=== PATIENT | female | born 1995 | race Two or more races ===

== ENCOUNTER 2017-03-13 11:20 | Observation (INO) | payer SELFPAY ==
[~2017-03-13] VITALS: Ht 165.1 cm; Wt 90.7 kg
[2017-03-13 12:31] LABS: Basophils # (auto) 0 uL; Basophils % (auto) 0.3 % (0.0-2.0); CONDITION Y; Eosinophils # (auto) 0.4 uL; Eosinophils % (auto) 4.1 % (0.0-7.0); Hematocrit 38.3 % (36.0-46.0); Hemoglobin 13.1 g/dL (12.2-16.2); Lymphocytes # (auto) 1.9 uL; Lymphocytes % (auto) 20.4 % (10.0-50.0); Mean Corpuscular Hemoglobin 29.7 pg (28.0-32.0); Mean Corpuscular Hgb Conc. 34.2 g/dL (32.0-36.0); Mean Corpuscular Volume 86.7 fL (80.0-100.0); Mean Platelet Volume 9.8 fL (7.4-10.4); Monocytes # (auto) 0.9 uL; Monocytes % (auto) 9.5 % (0.0-12.0); Neutrophils # (auto) 6.1 uL; Neutrophils % (auto) 65.7 % (37.0-80.0); Platelet Count (auto) 273 10^3/uL (140-450); Red Cell Distribution Width 14.2 % (11.6-16.0); White Blood Cell 9.2 10^3/uL (4.4-10.8)
[2017-03-13 12:36] LABS: BUN/Creatinine Ratio 18.5; Calcium 9.6 mg/dL (8.5-10.1); Potassium 4.1 mmol/L (3.5-5.1)
[2017-03-13 12:39] LABS: Bilirubin, Total 0.2 mg/dL (0.2-1.0); Total Protein 6.8 g/dL (6.4-8.2)
[2017-03-13] MEDS ORDERED: TERBUTALINE SULFATE 1 MG/ML 1ML VIAL SC ONE (12:45)
[2017-03-13] MEDS ORDERED: LACTATED RINGER'S 1,000 ML IV ONE (13:45)
[2017-03-14 15:52] LABS: Uric Acid 4.8 mg/dL (2.6-6.0)
== END 2017-03-13 15:25 | disposition home or self-care (01) | DRG 781 ==
LOC: LDRP 11:20
PROVIDERS: ADMIT Specialist; ATTEND Specialist
DX: O26.893 Other specified pregnancy related conditions, third trimester (principal); R10.2 Pelvic and perineal pain; O60.03 Preterm labor without delivery, third trimester; O62.9 Abnormality of forces of labor, unspecified; Z3A.34 34 weeks gestation of pregnancy
CPT/HCPCS: 36415; 59025; 76805; 76818; 80053; 81002; 84550; 85025; 86592; 96372; G0378; J3105; 96375

== ENCOUNTER 2017-03-16 10:46 | Observation (INO) | payer SELFPAY | END 2017-03-16 13:15 | disposition home or self-care (01) | DRG 781 | LOC: LDRP 10:46 | PROVIDERS: ADMIT Obstetrics & Gynecology; ATTEND Obstetrics & Gynecology | DX: O26.613 Liver and biliary tract disorders in pregnancy, third trimester (principal); O60.03 Preterm labor without delivery, third trimester; O62.9 Abnormality of forces of labor, unspecified; Z3A.35 35 weeks gestation of pregnancy | CPT/HCPCS: 59025; 76805; 81002; G0378 ==

== ENCOUNTER 2017-03-31 05:06 | Inpatient (IN) | payer MEDICAID ==
[~2017-03-31] VITALS: Ht 30.5 cm; Wt 0.5 kg
[~2017-03-31 05:06] MED LIST: PREN-153 OR
[2017-03-31] MEDS: LACTATED RINGER'S 1,000 ML IV SCH ×4 (06:00→13:00)
[2017-03-31] MEDS ORDERED: PROMETHAZINE HCL 25 MG/ML 1ML IV PRN (06:00)
[2017-03-31] MEDS ORDERED: NALBUPHINE HCL 10 MG/1ml INJECTION IV PRN (06:00)
[2017-03-31] MEDS ORDERED: LIDOCAINE 1% HCL (LOCAL ANESTH.) INJ 20ML MDV XX ONE (06:00)
[2017-03-31] MEDS ORDERED: PENICILLIN G POT 5MIL/D5 50ML 50 ML IV ONE ×2 (06:12→06:15)
[2017-03-31 06:56] LABS: Basophils # (auto) 0 uL; Basophils % (auto) 0.3 % (0.0-2.0); CONDITION Y; Eosinophils # (auto) 0.3 uL; Eosinophils % (auto) 3.9 % (0.0-7.0); Hematocrit 37.1 % (36.0-46.0); Hemoglobin 12.7 g/dL (12.2-16.2); Lymphocytes # (auto) 2.1 uL; Mean Corpuscular Hemoglobin 29.6 pg (28.0-32.0); Mean Corpuscular Hgb Conc. 34.2 g/dL (32.0-36.0); Mean Corpuscular Volume 86.8 fL (80.0-100.0); Monocytes # (auto) 0.8 uL; Monocytes % (auto) 9.5 % (0.0-12.0); Neutrophils # (auto) 4.9 uL; Neutrophils % (auto) 60.3 % (37.0-80.0); Platelet Count (auto) 255 10^3/uL (140-450); Red Cell Distribution Width 14.6 % (11.6-16.0); White Blood Cell 8.1 10^3/uL (4.4-10.8)
[2017-03-31 07:05] LABS: INR 0.89 (0.9-1.15); Partial Thromboplastin Time 29.6 sec (22.64-33.71); Prothrombin Time 9.7 sec (9.37-12.3)
[2017-03-31 07:24] LABS: Albumin 2.5 g/dL (3.4-5.0); BUN/Creatinine Ratio 18.9; Bilirubin, Total 0.2 mg/dL (0.2-1.0); Potassium 4.2 mmol/L (3.5-5.1); Total Protein 6.3 g/dL (6.4-8.2); Uric Acid 6.2 mg/dL (2.6-6.0)
[2017-03-31] MEDS ORDERED: LACT. RINGERS/OXYTOCIN 20UNITS 1,000 ML IV ONE ×2 (07:24→16:59)
[2017-03-31] MEDS ORDERED: TERBUTALINE SULFATE 1 MG/ML 1ML VIAL SC ONE (07:30)
[2017-03-31 07:46] LABS: Urine Bilirubin Negative (Negative); Urine Color Yellow (Yellow); Urine Glucose Normal (Normal); Urine Hyaline Cast FEW /lpf (0 - 2); Urine Ketone Negative (Negative); Urine Nitrite Negative (Negative); Urine Urobilinogen Normal (Negative); Urine pH 7.5 (5.0-8.0)
[2017-03-31 07:48] LABS: Urine Blood 2+ /uL (Negative); Urine RBC 69 /hpf (0 - 4)
[2017-03-31 07:49] LABS: Urine Squamous Epithelial Cell Moderate /hpf (<5)
[2017-03-31] MEDS ORDERED: LIDOCAINE HCL 2 %PF INJ 10ML AMP IJ ONE ×2 (10:15→10:18)
[2017-03-31] MEDS ORDERED: fentaNYL CITRATE 100 MCG/2 ML VL IV ONE (10:15)
[2017-03-31] MEDS ORDERED: ePHEDrine SULFATE 50 MG/ML AMP IV ONE (10:15)
[2017-03-31] MEDS ORDERED: fentaNYL W ROPIVACAINE 150 ML EPI SCH (10:15)
[2017-03-31] MEDS ORDERED: NALOXONE HCL 0.4 MG/ML VIAL IV ONE (10:15)
[2017-03-31] MEDS ORDERED: fentaNYL W ROPIVACAINE 0 ML EPI ONE (10:16)
[2017-03-31] MEDS ORDERED: fentaNYL CITRATE 100 MCG/2 ML VL ONE (10:17)
[2017-03-31] MEDS ORDERED: ePHEDrine SULFATE 50 MG/ML AMP ONE (10:17)
[2017-03-31] MEDS ORDERED: MAGNESIUM SULFATE 40MG/ML 1,000 ML IV ONE (11:04)
[2017-03-31] MEDS: PENICILLIN G POTASSIUM 2,500,000 UNITS in D5W 5% 50 ML IV SCH ×3 (11:15→20:00)
[2017-03-31] MEDS: MAGNESIUM SULFATE 40MG/ML 1,000 ML IV SCH (11:20)
[2017-03-31] MEDS ORDERED: LIDOCAINE 2%HCL (LOCAL ANESTH.) INJ 20ML MDV ONE (14:28)
[2017-03-31] MEDS ORDERED: PHISODERM TOP SOLN 240ML BTL TOP ONE (14:29)
[2017-03-31] MEDS ORDERED: DERMOPLAST 60ML BOTTLE TOP ONE (14:29)
[2017-03-31] MEDS ORDERED: WITCH HAZEL-GLYCERIN PAD TOP ONE (14:29)
[2017-03-31 19:20] VITALS: BP 131/78
[2017-03-31 20:15] VITALS: BP 129/78
[2017-03-31 21:00] VITALS: BP 126/80
[2017-03-31 22:00] VITALS: BP 109/56
[2017-03-31 23:18] VITALS: BP 127/59
[2017-04-01] VITALS (10 sets, daily range): BP systolic 124–158; BP diastolic 62–84
[2017-04-01] MEDS: PENICILLIN G POTASSIUM 2,500,000 UNITS in D5W 5% 50 ML IV SCH ×2
[2017-04-01] MEDS ORDERED: ACETAMINOPHEN 325 MG TAB PO PRN (03:15)
[2017-04-01] MEDS: IBUPROFEN 600 MG TAB PO PRN ×2 (04:11→17:10)
[2017-04-01] MEDS: MAGNESIUM SULFATE 40MG/ML 1,000 ML IV SCH (04:41)
[2017-04-02] VITALS: BP 128/75
[2017-04-02 04:10] VITALS: BP 132/70
[2017-04-02] MEDS: IBUPROFEN 600 MG TAB PO PRN (07:02)
[2017-04-02 08:14] VITALS: BP 131/78
== END 2017-04-02 15:15 | disposition home or self-care (01) | DRG 560 ==
LOC: LDRP 05:06
PROVIDERS: ADMIT Specialist; ATTEND Specialist
PROC: 0KQM0ZZ Repair Perineum Muscle, Open Approach (ICD-10-PCS; principal; 2017-03-31)
PROC: 10E0XZZ Delivery of Products of Conception, External Approach (ICD-10-PCS; 2017-03-31)
PROC: 0W8NXZZ Division of Female Perineum, External Approach (ICD-10-PCS; 2017-03-31)
DX: O14.94 Unspecified pre-eclampsia, complicating childbirth (principal); O42.02 Full-term premature rupture of membranes, onset of labor within 24 hours of rupture; O70.1 Second degree perineal laceration during delivery; Z3A.37 37 weeks gestation of pregnancy; Z37.0 Single live birth
CPT/HCPCS: 36415; 59025; 59409; 80053; 81001; 81002; 83735; 84550; 85025; 85610; 85730; 86850; 86900; 86901; 96361; 96365; 96366; G0378; J2540; J2590; J3010; J7060

== ENCOUNTER 2022-08-16 22:49 | Inpatient (IN) | payer MEDICAID ==
[~2022-08-16] VITALS: Ht 152.4 cm; Wt 90.7 kg
[~2022-08-16 22:49] MED LIST changes: -PREN-153 OR; +PREN1TAB71 OR
[2022-08-16] MEDS ORDERED: LIDOCAINE 2%HCL (LOCAL ANESTH.) INJ 20ML MDV IJ PRN (23:30)
[2022-08-16] MEDS ORDERED: BUTORPHANOL TARTRATE 2 MG/1 ML VIAL IV PRN ×2 (23:30)
[2022-08-16] MEDS ORDERED: WITCH HAZEL-GLYCERIN PAD TOP PRN (23:30)
[2022-08-16] MEDS ORDERED: LACT. RINGERS/OXYTOCIN 20UNITS 500 ML IV ONE (23:30)
[2022-08-16] MEDS ORDERED: BETAMETHASONE ACET (30mg/5ml) 5ml Vial 6mg/ml IM ONE (23:30)
[2022-08-16] MEDS ORDERED: PENICILLIN G POT 5MIL/D5 50ML 50 ML IV ONE (23:30)
[2022-08-16] MEDS ORDERED: DERMOPLAST 60ML BOTTLE TOP PRN (23:30)
[2022-08-16] MEDS ORDERED: PROMETHAZINE HCL 25 MG/ML 1ML IM PRN (23:30)
[2022-08-16] MEDS ORDERED: PHISODERM TOP SOLN 240ML BTL TOP PRN (23:30)
[2022-08-16] MEDS: LACTATED RINGER'S 1,000 ML IV SCH (23:44)
[2022-08-17] LABS: Amphetamine Screen, Urine NEGATIVE (NEGATIVE); Barbiturate Scree,Urine NEGATIVE (NEGATIVE); Benzodiazephine Screen, Urine NEGATIVE (NEGATIVE); Cannabinoid Screen, Urine NEGATIVE (NEGATIVE); Cocaine Screen, Urine NEGATIVE (NEGATIVE); Opiate Scree,Urine NEGATIVE (NEGATIVE); Phencyclidine Screen, Urine NEGATIVE (NEGATIVE)
[2022-08-17] MEDS ORDERED: LACT. RINGERS/OXYTOCIN 20UNITS 500 ML IV ONE
[2022-08-17 00:06] LABS: Basophils # (auto) 0 10 ^3/uL (0-0.2); Basophils % (auto) 0.2 % (0.0-2.0); Eosinophils # (auto) 0.1 10 ^3/uL (0-0.8); Eosinophils % (auto) 1.9 % (0.0-7.0); Hematocrit 35.1 % (36.0-46.0); Hemoglobin 11.6 g/dL (12.2-16.2); Lymphocytes # (auto) 1.9 10 ^3/uL (0.4-5.4); Lymphocytes % (auto) 26.4 % (10.0-50.0); Mean Corpuscular Hgb Conc. 33.2 g/dL (32.0-36.0); Mean Corpuscular Volume 87.6 fL (80.0-100.0); Monocytes # (auto) 0.6 10 ^3/uL (0-1.3); Monocytes % (auto) 8.4 % (0.0-12.0); Neutrophils # (auto) 4.6 10 ^3/uL (1.6-8.6); Neutrophils % (auto) 63.1 % (37.0-80.0); Nucleated Red Blood Cells % 0.1 %; Red Blood Cells 4.01 10^6/uL (4.0-5.20); White Blood Cell 7.2 10^3/uL (4.4-10.8)
[2022-08-17 00:09] LABS: Urine Bacteria NONE SEEN /hpf (None Seen); Urine Blood Negative /uL (Negative); Urine Mucus FEW (None Seen); Urine Specific Gravity 1.027 (1.001-1.035); Urine WBC 3 /hpf (0 - 5)
[2022-08-17 00:21] LABS: INR 0.92 (0.9-1.15); Partial Thromboplastin Time 28.7 sec (24.6-33.4)
[2022-08-17 00:22] LABS: Albumin 2.4 g/dL (3.4-5.0); BUN/Creatinine Ratio 20.8; Calcium 8.8 mg/dL (8.5-10.1); Potassium 3.6 mmol/L (3.5-5.1)
[2022-08-17 00:25] LABS: Bilirubin, Total 0.1 mg/dL (0.2-1.0); Total Protein 6.2 g/dL (6.4-8.2)
[2022-08-17] MEDS: LACTATED RINGER'S 1,000 ML IV SCH ×2 (01:27→04:15)
[2022-08-17] MEDS ORDERED: PENICILLIN G POTASSIUM 2,500,000 UNITS in D5W 5% 50 ML IV SCH (03:30)
[2022-08-17] MEDS ORDERED: AMPICILLIN SOD 2GM INJ 2 GM in SODIUM CHL 0.9% 100 ML IV ONE (03:45)
[2022-08-17] MEDS ORDERED: TERBUTALINE SULFATE 1 MG/ML 1ML VIAL SC ONE (03:45)
[2022-08-17] MEDS ORDERED: AMPICILLIN SOD 1 GM VL ONE (04:08)
[2022-08-18 07:06] LABS: RPR Non Reactive (Non Reactive)
== END 2022-08-17 05:20 | disposition short-term general hospital (02) | DRG 566 ==
LOC: LDRP 22:49 → OBSVTOIN 23:00 → LDRP 23:32
PROVIDERS: ADMIT Obstetrics & Gynecology; ATTEND Obstetrics & Gynecology
DX: O42.913 Preterm premature rupture of membranes, unspecified as to length of time between rupture and onset of labor, third trimester (principal); Z20.822 Contact with and (suspected) exposure to COVID-19; Z3A.35 35 weeks gestation of pregnancy
CPT/HCPCS: 36415; 59025; 76805; 80053; 80307; 81001; 81002; 84112; 85025; 85610; 85730; 86592; 86850; 86900; 86901; 87426; 94760; 96360; 96361; 96372; G0378; J2540; J7060